=== PATIENT | male | born 1970 | race Caucasian/White ===

== ENCOUNTER 2023-12-04 18:02 | Inpatient (IN) | payer OTHER, SELFPAY ==
[2023-12-04] MEDS ORDERED: Ipratropium/Albuterol 3 ML NEB NEB PRN (18:42)
[2023-12-04] MEDS ORDERED: Ondansetron ODT 4 MG TAB PO PRN (18:42)
[2023-12-04] MEDS ORDERED: Glucagon 1 MG/ML KIT IM PRN (18:42)
[2023-12-04] MEDS ORDERED: Dextrose 5% in Water 1,000 ML IV PRN (18:42)
[2023-12-04] MEDS ORDERED: Dextrose 50% Abboject 50 ML SYRINGE SLOW IVP PRN (18:42)
[2023-12-04] MEDS ORDERED: Morphine 4 MG/ML VIAL ONE (19:40)
[2023-12-04] MEDS: TETANUS, DIPHTHERIA TOX,ADULT (TDVAX) 0.5 ML VIAL IM ONE (20:30)
[2023-12-04] MEDS: CEFAZOLIN 1 GM in Sodium Chloride 0.9% 100 ML IVPB SCH (22:28)
[2023-12-04] MEDS: HYDROcodone/Acetaminophen 5/325 mg Tablet PO PRN (22:29)
[2023-12-04] MEDS: Acetaminophen 325 MG TAB PO PRN (22:30)
[2023-12-05] MEDS: Ondansetron PF 4 MG/2 ML Vial IVP PRN (01:05)
[2023-12-05] MEDS: Morphine 2 MG/ML VIAL SLOW IVP PRN (01:09)
[2023-12-05 02:54] VITALS: BMI 24.5
[2023-12-05 04:26] LABS: #Eosinphils 0.3 thou/uL (0.0-0.7); #Monocytes 0.9 thou/uL (0.11-0.59); #Neutrophils 7.2 thou/uL (1.40-6.50); %Basophils 0.2 % (0.0-1.0); %Eosinophils 3.1 % (0.0-10.0); %Lymphocytes 15.3 % (21.0-51.0); %Monocytes 9.3 % (0.0-10.0); %Neutrophils 71.8 % (42.0-75.0); Hematocrit 40.5 % (42.0-52.0); Hemoglobin 13.4 g/dL (14.0-18.0); Mean Corpuscular HGB CONC 33.1 g/dL (32.0-36.0); Mean Corpuscular Hemoglobin 30.4 pg (27.0-31.0); Mean Corpuscular Volume 91.8 fl (78.0-98.0); Mean Platelet Volume 9.6 fL (7.4-10.4); Platelet Count 229 10x3/uL (130-400); RBC Distribution Width 12.9 % (11.5-14.5); Red Blood Cell (RBC) Count 4.41 mill/uL (4.70-6.10); White Blood Cell (WBC) Count 10.1 10x3/uL (4.8-10.8)
[2023-12-05] MEDS ORDERED: CEFAZOLIN 2 GM in Sodium Chloride 0.9% 100 ML IVPB SCH (07:30)
[2023-12-05 08:22] LABS: BUN (Urea Nitrogen) 10 mg/dL (8.4-25.7); Calc. Creatinine Clearance 129 mL/min (70-130); Calcium 8.9 mg/dL (7.8-10.44); Carbon Dioxide 24 mmol/L (22-29); Estimated GFR 106; Glucose 111 mg/dL (70-105)
[2023-12-05 09:31] LABS: Chloride 102 mmol/L (98-107); Potassium 3.3 mmol/L (3.5-5.1); Sodium 140 mmol/L (136-145)
[2023-12-05 09:34] LABS: Anion Gap 17 mmol/L (10-20)
[2023-12-05] MEDS: traMADol HCl 50 MG TAB PO PRN ×2 (09:55→16:00)
[2023-12-05] MEDS ORDERED: Morphine 2 MG/ML VIAL SLOW IVP PRN (14:14)
[2023-12-05] MEDS: Ibuprofen 200 MG TAB PO SCH (14:45)
[2023-12-05] MEDS: Acetaminophen 500 MG TAB PO SCH (14:45)
[2023-12-05] MEDS: Lactulose 20 GM (30 mL) UDCUP PO SCH (14:46)
[2023-12-05] MEDS: traMADol HCl 50 MG TAB PO SCH (17:49)
[2023-12-05] MEDS: Famotidine 20 MG TAB PO SCH (21:49)
[2023-12-05] MEDS: Cyclobenzaprine 10 MG TAB PO PRN (21:49)
[2023-12-05] MEDS: Senokot S 8.6-50 MG TAB PO SCH (21:52)
[2023-12-06] MEDS: CEFAZOLIN 1 GM VIAL ONE (05:36)
[2023-12-06] MEDS: Polyethylene Glycol 3350 17 GM Packet PO SCH (08:06)
[2023-12-06] MEDS ORDERED: PROPOFOL 20 ML ONE (08:12)
[2023-12-06] MEDS ORDERED: Lidocaine 2% 6 ML (Jelly) SYR ONE (08:13)
[2023-12-06] MEDS ORDERED: CEFAZOLIN 2 GM VIAL ONE (12:12)
[2023-12-06] MEDS ORDERED: Sodium Chloride 0.9% 100 ML ONE ×2 (12:12→12:46)
[2023-12-06] MEDS ORDERED: fentaNYL PF 100 MCG/2 ML SYRINGE ONE ×2 (12:22→12:53)
[2023-12-06] MEDS ORDERED: Midazolam HCl 2 mg/2 ml Vial ONE (12:22)
[2023-12-06] MEDS ORDERED: ePHEDrine Sulfate 50 MG/10 ML VIAL ONE (12:41)
[2023-12-06] MEDS ORDERED: Phenylephrine 10 MG/ML VIAL ONE (12:45)
[2023-12-06] MEDS ORDERED: Ondansetron PF 4 MG/2 ML Vial ONE (13:14)
[2023-12-06] MEDS ORDERED: Morphine Sulfate 2 MG/ML SYRINGE SLOW IVP PRN (13:17)
[2023-12-06] MEDS ORDERED: HYDROmorphone 2 MG/ML VIAL SLOW IVP PRN (13:17)
[2023-12-06] MEDS ORDERED: Meperidine HCl/PF 25 MG/ML VIAL SLOW IVP PRN (13:17)
[2023-12-06] MEDS ORDERED: Promethazine HCl 25 MG/ML VIAL IM PRN (13:17)
[2023-12-06] MEDS ORDERED: Ondansetron HCl/PF 4 MG/2 ML Vial IVP PRN (13:17)
[2023-12-06] MEDS ORDERED: Dexamethasone 20 MG/5 ML VIAL ONE (13:21)
[2023-12-06] MEDS ORDERED: fentaNYL 50 mcg/mL 1 mL Vial ONE (14:23)
[2023-12-06] MEDS: CEFAZOLIN 2 GM in Sodium Chloride 0.9% 100 ML IVPB SCH (20:00)
[2023-12-07 05:15] LABS: #Monocytes 0.8 thou/uL (0.11-0.59); #Neutrophils 9.7 thou/uL (1.40-6.50); %Basophils 0.1 % (0.0-1.0); %Lymphocytes 8.4 % (21.0-51.0); %Monocytes 7.1 % (0.0-10.0); %Neutrophils 84.1 % (42.0-75.0); Hemoglobin 11.8 g/dL (14.0-18.0); Mean Corpuscular HGB CONC 32.8 g/dL (32.0-36.0); Mean Corpuscular Hemoglobin 30.6 pg (27.0-31.0); Mean Corpuscular Volume 93.3 fl (78.0-98.0); Mean Platelet Volume 9.8 fL (7.4-10.4); Platelet Count 268 10x3/uL (130-400); RBC Distribution Width 12.6 % (11.5-14.5); Red Blood Cell (RBC) Count 3.86 mill/uL (4.70-6.10); White Blood Cell (WBC) Count 11.6 10x3/uL (4.8-10.8)
[2023-12-07 05:34] LABS: Anion Gap 13 mmol/L (10-20); BUN (Urea Nitrogen) 15 mg/dL (8.4-25.7); Calc. Creatinine Clearance 113 mL/min (70-130); Calcium 8.4 mg/dL (7.8-10.44); Carbon Dioxide 30 mmol/L (22-29); Chloride 102 mmol/L (98-107); Estimated GFR 102; Glucose 161 mg/dL (70-105); Potassium 3.8 mmol/L (3.5-5.1); Sodium 141 mmol/L (136-145)
[2023-12-07] MEDS: Enoxaparin 40 MG (0.4 mL) SYRINGE SC SCH (08:20)
[2023-12-07] MEDS: Ibuprofen 600 MG TAB PO SCH (08:20)
[2023-12-07] MEDS ORDERED: hydrALAZINE 20 MG/ML VIAL SLOW IVP PRN (11:05)
[2023-12-07] MEDS: Losartan 25 MG TAB PO SCH (11:11)
[2023-12-08 04:03] LABS: #Eosinphils 0.6 thou/uL (0.0-0.7); #Monocytes 0.7 thou/uL (0.11-0.59); %Basophils 0.3 % (0.0-1.0); %Eosinophils 6.7 % (0.0-10.0); %Lymphocytes 23.2 % (21.0-51.0); %Monocytes 7.5 % (0.0-10.0); %Neutrophils 61.9 % (42.0-75.0); Hematocrit 38.8 % (42.0-52.0); Hemoglobin 12.7 g/dL (14.0-18.0); Mean Corpuscular HGB CONC 32.7 g/dL (32.0-36.0); Mean Corpuscular Hemoglobin 30.6 pg (27.0-31.0); Mean Corpuscular Volume 93.5 fl (78.0-98.0); Mean Platelet Volume 9.6 fL (7.4-10.4); Platelet Count 257 10x3/uL (130-400); RBC Distribution Width 12.7 % (11.5-14.5); Red Blood Cell (RBC) Count 4.15 mill/uL (4.70-6.10); White Blood Cell (WBC) Count 9.6 10x3/uL (4.8-10.8)
[2023-12-08] MEDS ORDERED: Ibuprofen 600 MG TAB PO PRN (06:47)
[2023-12-08] MEDS: Losartan 25 MG TAB PO SCH ×2 (08:50→11:39)
[2023-12-08] MEDS ORDERED: Acetaminophen/Codeine 30-300mg Tablet PO PRN (09:26)
[2023-12-08] MEDS ORDERED: Losartan 25 MG TAB PO SCH (10:02)
[2023-12-08] MEDS: Acetaminophen/Codeine 30-300mg Tablet PO PRN (19:22)
[2023-12-09] MEDS ORDERED: Losartan 25 MG TAB PO SCH (09:00)
[2023-12-09] MEDS: Losartan 25 MG TAB PO SCH (09:02)
[2023-12-10] MEDS: Amlodipine 5 MG TAB PO SCH (09:00)
[2023-12-11] MEDS: Ibuprofen 600 MG TAB PO SCH (15:00)
[2023-12-11] MEDS: Acetaminophen 500 MG TAB PO SCH (17:40)
[2023-12-12] MEDS: traMADol HCl 50 MG TAB PO SCH (20:48)
[2023-12-13] MEDS ORDERED: Acetaminophen 500 MG TAB PO PRN (12:00)
[2023-12-13] MEDS: traMADol HCl 50 MG TAB PO PRN (15:52)
[2023-12-13 19:30] VITALS: BP 134/77; TEMP 98.6
== END 2023-12-13 21:34 | DRG 493 ==
LOC: ERS 18:02 → EEVIPCON 18:42 → SJJU 18:42
PROVIDERS: ADMIT Specialist; ATTEND Specialist
PROC: 3E033XZ Introduction of Vasopressor into Peripheral Vein, Percutaneous Approach (ICD-10-PCS; 2023-12-06)
PROC: 0QSG06Z Reposition Right Tibia with Intramedullary Internal Fixation Device, Open Approach (ICD-10-PCS; principal; 2023-12-07)
DX: S89.101A Unspecified physeal fracture of lower end of right tibia, initial encounter for closed fracture (principal); D62 Acute posthemorrhagic anemia; I10 Essential (primary) hypertension; B19.20 Unspecified viral hepatitis C without hepatic coma
CPT/HCPCS: 36415; 80048; 85025; 96374; C1713; G0390; J0690; J1100; J1650; J2250; J2270; J2272; J2371; J2405; J2704; J3010; J3490